=== PATIENT | female | born 1985 | race Caucasian/White ===

== ENCOUNTER 2017-05-07 03:57 | Observation (INO) | payer OTHER ==
[~2017-05-07] VITALS: Ht 165.1 cm; Wt 60.8 kg
[2017-05-07] VITALS (7 sets, daily range): BP systolic 86–105; BP diastolic 44–68; PULSE 101–111; TEMP 36.9–37.5; O2SAT 95; Ht 165.1 cm; Wt 60.8 kg
[2017-05-07] MEDS ORDERED: SODIUM CHLORIDE 0.9% 1000ML 1,000 ML IV STA ×3 (04:14→07:08)
--- NOTE | 2017-05-07 04:15 | EMERGENCY ROOM VISIT NOTE ---
History Report prepared by Judy: Enrique Grijalva Under the Supervision of: Dr. Jeffery Dubois M.D. First contact with patient: 04:05 Chief Complaint: COUGH Stated Complaint: COUGH W/ PHLEM,FEVER,HEART POUNDING,[place], 9W History of Present Illness The patient is a 31 year old female who presents to the Emergency Room with complaints of a persistent productive cough that began 1 week ago. She is currently 9 weeks . She describes her sputum production as green in color. When her symptoms began, she was afebrile. However, yesterday she began to have a fever with chills. She notes her appetite has been normal and denies any nausea, vomiting, diarrhea, or abnormal urinary symptoms. She has intermittent rhinorrhea with a sore throat and chest pain as well. She felt her heart racing prior to arrival. She took Tylenol 1 hour ago. She denies any leg swelling or leg pain. She denies any history of blood clots. She denies any abnormal vaginal bleeding. She also denies any recent antibiotic use. Source of History: patient Onset: 1 week ago Position: other (Respiratory System) Symptom Intensity: Productive Quality: other (Cough) Timing: other (Persistent) Associated Symptoms: + fevers, + chills, + chest pain, No nausea, No vomiting, No diarrhea, No urinary symptoms Note: She felt her heart racing prior to arrival. Review of Systems See HPI for pertinent positives & negatives. A total of 10 systems reviewed and were otherwise negative. Family History Patient reports no known family medical history. Social History Smoking Status: Never Smoker Smokeless Tobacco Use: No Drug Use: none Current/Historical Medications Scheduled Azithromycin (Zithromax Z-Humberto), 1 PKT PO UD Multivit/Min/Iron/Fol Ac/Pren ( Vitamin), 1 TAB PO DAILY Prednisone (Prednisone), 1 TAB PO DAILY Allergies Uncoded Allergies: PENICILLIN (Allergy, Intermediate, " HEAD -TO-TOE" RASH, 05/07/17) Physical Exam Vital Signs Date Time Temp Pulse Resp B/P (MAP) Pulse Ox O2 Delivery O2 Flow Rate FiO2 05/07/17 07:08 117 16 99/77 96 Room Air 05/07/17 06:06 36.8 108 18 100/59 98 Room Air 05/07/17 04:50 109 18 95/54 95 Room Air 05/07/17 04:29 98 Room Air 05/07/17 04:01 37.2 132 18 92/58 94 Room Air Physical Exam GENERAL: Patient is uncomfortable appearing and in no acute distress. HEENT: No acute trauma, normocephalic atraumatic, mucous membranes moist, no nasal congestion, no scleral icterus. NECK: No stridor, no adenopathy, no meningismus, trachea is midline. LUNGS: No dyspnea. Crackles noted to the right lower lung. No wheeze, no rhonchi. HEART: Tachycardic rate and regular rhythm. No murmurs, rubs, gallops appreciated. ABDOMEN: Soft, nontender, bowel sounds positive, no masses appreciated, no peritonitis. BACK: No midline tenderness, no CVA tenderness EXTREMITIES: Normal motion all extremities, no cyanosis, no edema. NEUROLOGIC: Alert and oriented, no acute motor or sensory deficits, no focal weakness, cranial nerves grossly intact. SKIN: No rash, no jaundice, no diaphoresis. Medical Decision & Procedures ER Provider Diagnostic Interpretation: Radiology results and stated below per my review: 1 VIEW CHEST X-RAY: No infiltrate, no effusion, normal cardiac border. Per me. Laboratory Results 05/07/17 04:35 Red Blood Count 3.62, Mean Corpuscular Volume 90.6, Mean Corpuscular Hemoglobin 31.5, Mean Corpuscular Hemoglobin Concent 34.8, Mean Platelet Volume 11.1, Neutrophils (%) (Auto) 88.7, Lymphocytes (%) (Auto) 5.3, Monocytes (%) (Auto) 5.8, Eosinophils (%) (Auto) 0.0, Basophils (%) (Auto) 0.1, Neutrophils # (Auto) 7.19, Lymphocytes # (Auto) 0.43, Monocytes # (Auto) 0.47, Eosinophils # (Auto) 0.00, Basophils # (Auto) 0.01 05/07/17 04:35 Test 05/07/17 04:35 05/07/17 04:40 05/07/17 04:56 05/07/17 05:55 White Blood Count 8.11 K/uL (4.8-10.8) Red Blood Count 3.62 M/uL (4.2-5.4) Hemoglobin 11.4 g/dL (12.0-16.0) Hematocrit 32.8 % (37-47) Mean Corpuscular Volume 90.6 fL (80-100) Mean Corpuscular Hemoglobin 31.5 pg (25-34) Mean Corpuscular Hemoglobin Concent 34.8 g/dl (32-36) Platelet Count 177 K/uL (130-400) Mean Platelet Volume 11.1 fL (7.4-10.4) Neutrophils (%) (Auto) 88.7 % Lymphocytes (%) (Auto) 5.3 % Monocytes (%) (Auto) 5.8 % Eosinophils (%) (Auto) 0.0 % Basophils (%) (Auto) 0.1 % Neutrophils # (Auto) 7.19 K/uL (1.4-6.5) Lymphocytes # (Auto) 0.43 K/uL (1.2-3.4) Monocytes # (Auto) 0.47 K/uL (0.11-0.59) Eosinophils # (Auto) 0.00 K/uL (0-0.5) Basophils # (Auto) 0.01 K/uL (0-0.2) RDW Standard Deviation 41.7 fL (36.4-46.3) RDW Coefficient of Variation 12.6 % (11.5-14.5) Immature Granulocyte % (Auto) 0.1 % Immature Granulocyte # (Auto) 0.01 K/uL (0.00-0.02) Anion Gap 8.0 mmol/L (3-11) Est Creatinine Clear Calc Drug Dose 153.2 ml/min Estimated GFR () > 150.0 Estimated GFR (Non- 129.8 BUN/Creatinine Ratio 14.3 (10-20) Calcium Level 8.8 mg/dl (8.5-10.1) Troponin I < 0.015 ng/ml (0-0.045) Bedside Lactic Acid Venous 1.00 mmol/L (0.90-1.70) Influenza Type A Antigen Neg for Influ A (NEG) Influenza Type B Antigen Neg for Influ B (NEG) Urine Color YELLOW Urine Appearance CLEAR (CLEAR) Urine pH 7.0 (4.5-7.5) Urine Specific [place] 1.004 (1.000-1.030) Urine Protein NEG (NEG) Urine Glucose (UA) NEG (NEG) Urine Ketones 1+ (NEG) Urine Occult Blood NEG (NEG) Urine Nitrite NEG (NEG) Urine Bilirubin NEG (NEG) Urine Urobilinogen NEG (NEG) Urine Leukocyte Esterase NEG (NEG) Urine WBC (Auto) 1-5 /hpf (0-5) Urine RBC (Auto) 0-4 /hpf (0-4) Urine Hyaline Casts (Auto) 1-5 /lpf (0-5) Urine Epithelial Cells (Auto) 10-20 /lpf (0-5) Urine Bacteria (Auto) 1+ (NEG) Laboratory results as reviewed by me. Medications Administered Medications (Trade) Dose Ordered Sig/Caprice Route Start Time Stop Time Status Last Admin Dose Admin Sodium Chloride 1,000 ml @ 999 mls/hr Q1H1M STAT IV 05/07/17 04:14 05/07/17 05:14 DC 05/07/17 04:50 999 MLS/HR Sodium Chloride 1,000 ml @ 999 mls/hr Q1H1M STAT IV 05/07/17 05:16 05/07/17 06:16 DC 05/07/17 05:16 999 MLS/HR ECG Indication: chest pain Rate (beats per minute): 118 Rhythm: sinus tachycardia Findings: no acute ischemic change, no ectopy, other (QTC is 442) ED Course 0405: The patient was evaluated in room A10. A complete history and physical exam was performed. 0516: The patient is feeling a lot better and her heart rate is down to the 110' s. 0615: Reevaluated the patient. Discussed results and discharge instructions: She verbalized understanding and agreement. The patient is ready for discharge. Medical Decision Differential: Viral, Pharyngitis, Cellulitis, Pneumonia, Influenza, Meningitis, Sepsis, Bacteremia, UTI/Pyelonephritis, Endocrine, Toxicologic, amongst other pathologies entertained. 31 yr old female arrives with complaint of fevers, chills, cough, fatigue, chest tightness, headache, and in general viral like symptoms, however she is tachycardic, mildly hypotensive, and is clearly quite dehydrated appearing. Exam with tachy and RLL crackles. Lactic acid OK. WBC is 8, which is actually very high for her (notes she usually runs <2 with myeloma and T cell disorder). Admits history of admissions for sepsis, previously due to pneumonia and states WBC > 6 is highly concerning. She was feeling much better after 2 L NSS and HR had started improving, however after a few hours HR started going back up and symptoms started returning. She is not in shock but is clearly still dehydrated (Ketones in urine). With history she will be empirically treated with rocephin/vanco. I did brief bedside US revealing IUP but will need formal to confirm this. Flu is negative and no flu contacts thus will hold off on Tamiflu for now. Headache has improved, there is no neck pain/stiffness, no rash and she is not meningitic appearing thus I feel that LP not indicated. UA is clear without evidence infection. CXR unremarkable, though with significant dehydration there may not be evidence thus of pna. I did initially concider sending home with abx but with repeat evaluations I felt that she will need further work-up and monitoring due to persistent tachy and symptoms. I do not however feel this is PE as she does not currently have SHOB nor hypoxia and she has higher likelihood causes of her symptoms, ie infection. No evidence pericarditis/acs. Patient signed out to Dr Villa awaiting further work-up. Medication Reconcilliation Current Medication List: was personally reviewed by me Blood Pressure Screening Patient's blood pressure: Low blood pressure Impression Primary Impression: Upper respiratory infection Additional Impressions: Persistent cough Dehydration Scribe Attestation The scribe's documentation has been prepared under my direction and personally reviewed by me in its entirety. I confirm that the note above accurately reflects all work, treatment, procedures, and medical decision making performed by me. Departure Information Dispostion Home / Self-Care Prescriptions Prednisone (Prednisone) 20 Mg Tab 1 TAB PO DAILY for 4 Days, #4 TAB Prov: Jeffery Dubois M.D. 05/07/17 Azithromycin (ZITHROMAX Z-HUMBERTO) 250 Mg Tab 1 PKT PO UD, #1 PKT Prov: Jeffery Dubois M.D. 05/07/17 Referrals No Doctor, Assigned (PCP) Forms HOME CARE DOCUMENTATION FORM, IMPORTANT VISIT INFORMATION Patient Instructions My [facility] Additional Instructions Keep well hydrated. Return if worsening symptoms, in particular shortness of breath, chest pain, passing out or other emergent concerns. Use Tylenol as needed for symptoms. Follow up with your primary OB as planned for full OB evaluation. Problem Qualifiers
[2017-05-07 04:56] LABS: HEMATOCRIT 32.8 % (37-47); HEMOGLOBIN 11.4 g/dL (12.0-16.0); MEAN CELL VOLUME 90.6 fL (80-100); MEAN CORPUSCULAR HEMOGLOBIN 31.5 pg (25-34); MEAN CORPUSCULAR HGB CONC 34.8 g/dl (32-36); MEAN PLATELET VOLUME 11.1 fL (7.4-10.4); PLATELET COUNT 177 K/uL (130-400); RED CELL DISTRIBUTION WIDTH CV 12.6 % (11.5-14.5); RED CELL DISTRIBUTION WIDTH SD 41.7 fL (36.4-46.3); WHITE BLOOD COUNT 8.11 K/uL (4.8-10.8)
[2017-05-07 05:13] LABS: BLOOD UREA NITROGEN 7 mg/dl (7-18); CALCIUM 8.8 mg/dl (8.5-10.1); CARBON DIOXIDE 22 mmol/L (21-32); CREATININE 0.47 mg/dl (0.60-1.20); GLUCOSE 93 mg/dl (70-99); POTASSIUM 3.2 mmol/L (3.5-5.1); SODIUM 134 mmol/L (136-145)
[2017-05-07 05:16] LABS: BASO % 0.1 %; BASO ABS # 0.01 K/uL (0-0.2); IG# 0.01 K/uL (0.00-0.02); LYMPH % 5.3 %; LYMPH ABS # 0.43 K/uL (1.2-3.4); MONO % 5.8 %; MONO ABS # 0.47 K/uL (0.11-0.59); NEUT % 88.7 %; NEUT ABS # 7.19 K/uL (1.4-6.5)
[2017-05-07] MEDS ORDERED: PRENTAB26 PO (05:22)
[2017-05-07 05:50] LABS: INFLUENZA B ANTIGEN Neg for Influ B (NEG)
[2017-05-07] MEDS ORDERED: AZITHROMYCIN 250 MG TAB PO ONE (06:45)
[2017-05-07] MEDS ORDERED: PRED20TA PO (06:53)
[2017-05-07] MEDS ORDERED: AZITTAB PO (06:53)
[2017-05-07] MEDS ORDERED: CEFTRIAXONE SOD INJ 1 GM ADDVIAL ONE (07:05)
[2017-05-07] MEDS ORDERED: CEFTRIAXONE SOD INJ 1 GM ADDVIAL IV STA (07:05)
[2017-05-07] MEDS ORDERED: VANCOMYCIN 1GM ED/ASU OMNICELL IV STA (07:15)
--- NOTE | 2017-05-07 07:42 | DIAGNOSTIC IMAGING REPORT ---
CHEST ONE VIEW PORTABLE CLINICAL HISTORY: fever COUGH. HEADACHE. COMPARISON STUDY: No previous studies for comparison. FINDINGS: The heart is normal in size. There are airspace opacities the left medial lung base, suspicious for a pneumonia given history of fever and cough.[ There is no failure. There are no pleural effusions. IMPRESSION: Airspace opacities at the left medial lung base suspicious for pneumonia. Films subsequent to treatment are recommended in follow-up. Electronically signed by: Pranay Jauregui M.D. 05/07/2017 7:41 AM Dictated Date/Time: 05/07/2017 7:40 AM
--- NOTE | 2017-05-07 08:12 | DIAGNOSTIC IMAGING REPORT ---
<14 WKS SINGLE CLINICAL HISTORY: , sepsis. COMPARISON STUDY: No previous studies for comparison. FINDINGS: A single live intrauterine gestation is visualized. The heart rate is 184. The crown-rump length measures 23 mm corresponding to an estimated postmenstrual age of 9 weeks and 0 days. A normal-appearing yolk sac is visualized. IMPRESSION: 1. Single live intrauterine . The estimated postmenstrual age is 9 weeks and 0 days 2. tachycardia. Electronically signed by: Pranay Jauregui M.D. 05/07/2017 8:10 AM Dictated Date/Time: 05/07/2017 8:07 AM
[2017-05-07] MEDS ORDERED: ACETAMINOPHEN 500 MG TAB PO STA (08:23)
--- NOTE | 2017-05-07 08:32 | EMERGENCY ROOM VISIT NOTE ---
ED Visit Note First contact with patient: 07:07 I assumed care at the change of shift. An ultrasound of the uterus for was pending. The ultrasound returned showing a viable 9 week . The patient presents tachycardic with cough and congestion. She has a history of myeloma and typically runs a white blood cell count of around 2. Her white count today is elevated from her baseline. She is persistently tachycardic despite IV fluids. She is borderline hypotensive. On chest film, she appears to have pneumonia at the left lower lung. Given her findings and history, a hospital stay was felt warranted. The patient had received ceftriaxone and vancomycin as antibiotic coverage. I did order for a gram of oral Tylenol for fever and aches. The patient is currently resting comfortably. Diagnosis: Tachycardia. Pneumonia. .
[2017-05-07 08:38] LABS: INFLUENZA A PCR Neg for Influ A (NEG); INFLUENZA B PCR Neg for Influ B (NEG)
[2017-05-07] MEDS ORDERED: POLYETHYLENE (MIRALAX) 17 GM PACK PO PRN (09:00)
[2017-05-07] MEDS ORDERED: MAGNESIUM HYDROXIDE SUSP 30 ML UDC PO PRN (09:00)
[2017-05-07] MEDS ORDERED: ONDANSETRON INJ 2 MG/ML 2 ML VIAL IV PRN (09:00)
[2017-05-07] MEDS ORDERED: ALUMINUM/MAGNESIUM/SIMETH (MAALOX MAX) 30 ML UDC PO PRN (09:00)
[2017-05-07] MEDS ORDERED: PRENATAL VITAMIN TAB PO SCH (09:00)
[2017-05-07] MEDS ORDERED: POTASSIUM CHLORIDE 20 MEQ TABCR PO ONE (09:00)
[2017-05-07] MEDS ORDERED: POTASSIUM CHLORIDE 10 MEQ TABCR ONE (09:30)
--- NOTE | 2017-05-07 09:34 | History and Physical ---
History & Physical Date & Time of Service: May 07, 2017 at 09:07 Chief Complaint: Cough W/ Phlem,Fever,Heart Pounding,[place], 9W Primary Care Physician: No Doctor, Assigned History of Present Illness Source: patient, family ( at bedside ), clinic records, hospital records Patient is a pleasant 31 y/o female, with PMHx of smouldering multiple myeloma and 9 weeks , who presented to the ED with complaints of fever/chills x1 day and cold-like symptoms x1 week. Patient notes she has been experiencing head congestion and a productive cough (green/brown sputum production) for 1 week now. She thought it was just the common cold. She did not see a medical provider, nor took any medications. Her and her are visiting from [facility] for the holidays. Last evening she started to experience fever/chills and palpitations. Her highest temp reading was 101.9. With her h/o MM and , she decided to come to the ED. Patient is currently not receiving treatment for multiple myeloma. She follows w/ Dr. Valente and Dr. Mckee in [facility]. This is her second - 1st resulted in miscarriage. +sweats. + headache. Patient denies any lightheadedness, dizziness, vision changes, CP, edema, SOB, wheezing, cough, abdominal pain, nausea, vomiting, diarrhea, urinary symptoms, melena, numbness/tingling, weakness, muscle/joint pain, anxiety/depression, active bleeding, or new skin discoloration/changes. Past Medical/Surgical History Past Medical/Surgical History: Smouldering multiple myeloma - 9 weeks Neck mass biopsy- lymph node Family History Patient reports no known family medical history. Social History Smoking Status: Never Smoker Smokeless Tobacco Use: No Alcohol Use: none Drug Use: none Marital Status: Housing status: lives with family Allergies Coded Allergies: Penicillins (Verified Allergy, Intermediate, " HEAD -TO-TOE" RASH, ) Home Medications Scheduled Azithromycin (Zithromax Z-Humberto), 1 PKT PO UD Multivit/Min/Iron/Fol Ac/Pren ( Vitamin), 1 TAB PO DAILY Prednisone (Prednisone), 1 TAB PO DAILY Physical Exam Vital Signs Date Time Temp Pulse Resp B/P (MAP) Pulse Ox O2 Delivery O2 Flow Rate FiO2 05/07/17 08:25 37.4 118 17 111/52 97 Room Air 05/07/17 07:44 115 24 111/55 97 Room Air 05/07/17 07:08 117 16 99/77 96 Room Air 05/07/17 06:06 36.8 108 18 100/59 98 Room Air 05/07/17 04:50 109 18 95/54 95 Room Air 05/07/17 04:29 98 Room Air 05/07/17 04:01 37.2 132 18 92/58 94 Room Air General Appearance: no apparent distress Head: normocephalic, atraumatic Eyes: normal inspection, PERRL ENT: hearing grossly normal Neck: supple Respiratory/Chest: lungs clear, no respiratory distress, no accessory muscle use Cardiovascular: + tachycardia (rhythm regular ) Abdomen/GI: normal bowel sounds, non tender, soft Back: normal inspection Extremities/Musculoskelatal: no calf tenderness, no pedal edema Neurologic/Psych: alert, normal mood/affect, oriented x 3 Skin: normal color, warm/dry, no rash Diagnostics Laboratory Results Results Past 24 Hours Test 05/07/17 04:35 05/07/17 04:40 05/07/17 04:56 05/07/17 05:55 Range/Units White Blood Count 8.11 4.8-10.8 K/uL Red Blood Count 3.62 4.2-5.4 M/uL Hemoglobin 11.4 12.0-16.0 g/dL Hematocrit 32.8 37-47 % Mean Corpuscular Volume 90.6 80-100 fL Mean Corpuscular Hemoglobin 31.5 25-34 pg Mean Corpuscular Hemoglobin Concent 34.8 32-36 g/dl Platelet Count 177 130-400 K/uL Mean Platelet Volume 11.1 7.4-10.4 fL Neutrophils (%) (Auto) 88.7 % Lymphocytes (%) (Auto) 5.3 % Monocytes (%) (Auto) 5.8 % Eosinophils (%) (Auto) 0.0 % Basophils (%) (Auto) 0.1 % Neutrophils # (Auto) 7.19 1.4-6.5 K/uL Lymphocytes # (Auto) 0.43 1.2-3.4 K/uL Monocytes # (Auto) 0.47 0.11-0.59 K/uL Eosinophils # (Auto) 0.00 0-0.5 K/uL Basophils # (Auto) 0.01 0-0.2 K/uL RDW Standard Deviation 41.7 36.4-46.3 fL RDW Coefficient of Variation 12.6 11.5-14.5 % Immature Granulocyte % (Auto) 0.1 % Immature Granulocyte # (Auto) 0.01 0.00-0.02 K/uL Sodium Level 134 136-145 mmol/L Potassium Level 3.2 3.5-5.1 mmol/L Chloride Level 104 98-107 mmol/L Carbon Dioxide Level 22 21-32 mmol/L Anion Gap 8.0 3-11 mmol/L Blood Urea Nitrogen 7 7-18 mg/dl Creatinine 0.47 0.60-1.20 mg/dl Est Creatinine Clear Calc Drug Dose 153.2 ml/min Estimated GFR () > 150.0 Estimated GFR (Non- 129.8 BUN/Creatinine Ratio 14.3 10-20 Random Glucose 93 70-99 mg/dl Calcium Level 8.8 8.5-10.1 mg/dl Troponin I < 0.015 0-0.045 ng/ml Bedside Lactic Acid Venous 1.00 0.90-1.70 mmol/L Influenza Type A (RT-PCR) Neg for Influ A NEG Influenza Type A Antigen Neg for Influ A NEG Influenza Type B Antigen Neg for Influ B NEG Influenza Type B (RT-PCR) Neg for Influ B NEG Urine Color YELLOW Urine Appearance CLEAR CLEAR Urine pH 7.0 4.5-7.5 Urine Specific [place] 1.004 1.000-1.030 Urine Protein NEG NEG Urine Glucose (UA) NEG NEG Urine Ketones 1+ NEG Urine Occult Blood NEG NEG Urine Nitrite NEG NEG Urine Bilirubin NEG NEG Urine Urobilinogen NEG NEG Urine Leukocyte Esterase NEG NEG Urine WBC (Auto) 1-5 0-5 /hpf Urine RBC (Auto) 0-4 0-4 /hpf Urine Hyaline Casts (Auto) 1-5 0-5 /lpf Urine Epithelial Cells (Auto) 10-20 0-5 /lpf Urine Bacteria (Auto) 1+ NEG Microbiology Results 05/07/17 Blood Culture, Received Pending 05/07/17 Blood Culture, Received Pending 05/07/17 Urine Culture, Received Pending Diagnostic Radiology CHEST ONE VIEW PORTABLE CLINICAL HISTORY: fever COUGH. HEADACHE. COMPARISON STUDY: No previous studies for comparison. FINDINGS: The heart is normal in size. There are airspace opacities the left medial lung base, suspicious for a pneumonia given history of fever and cough.[ There is no failure. There are no pleural effusions. IMPRESSION: Airspace opacities at the left medial lung base suspicious for pneumonia. Films subsequent to treatment are recommended in follow-up. Electronically signed by: Pranay Jauregui M.D. 05/07/2017 7:41 AM Dictated Date/Time: 05/07/2017 7:40 AM The status of this report is Signed. Draft = Not yet reviewed or approved by Radiologist. Signed = Reviewed and approved by Radiologist. [~ rep ct add3]] <14 WKS SINGLE CLINICAL HISTORY: , sepsis. COMPARISON STUDY: No previous studies for comparison. FINDINGS: A single live intrauterine gestation is visualized. The heart rate is 184. The crown-rump length measures 23 mm corresponding to an estimated postmenstrual age of 9 weeks and 0 days. A normal-appearing yolk sac is visualized. IMPRESSION: 1. Single live intrauterine . The estimated postmenstrual age is 9 weeks and 0 days 2. tachycardia. Electronically signed by: Pranay Jauregui M.D. 05/07/2017 8:10 AM Dictated Date/Time: 05/07/2017 8:07 AM The status of this report is Signed. Draft = Not yet reviewed or approved by Radiologist. Signed = Reviewed and approved by Radiologist. EKG JANEL LAMBERT ID:[id number] 07-MAY-2017 04:19:48 [facility] Sinus tachycardia Low voltage QRS Nonspecific T wave abnormality Abnormal ECG No previous ECGs available 25mm/s 10mm/mV 150Hz 8.0 SP2 12SL 241 CHARLA: 3 Referred by: Referred Self Unconfirmed Vent. rate 118 BPM AR interval 150 ms QRS duration 68 ms QT/QTc 316/442 ms P-R-T axes 53 11 52 1985 (31 yr) Female Room:A10 Loc:15 Senior Graphic Designer: [id number] Test ind: Impression Assessment and Plan Patient is a pleasant 31 y/o female, with PMHx of smouldering multiple myeloma and 9 weeks , who presented to the ED with complaints of fever/chills x1 day and cold-like symptoms x1 week. Community-acquired L medial lung base PNA: - Admit to tele for cardiac monitoring - Cardiac enzymes- negative - EKG w/out ischemic changes - Repeat lactic acid q6 hrs - BCx, UCx, MRSA swab, and sputum culture pending - Procalcitonin pending - IV Rocephin + Azithromycin- received 1 dose IV Vancomycin in ED, will not continue at this time- if MRSA swab +, will restart -- Discussed risk/benefits of antibiotics during with patient- in agreement to continue with treatment plan - Received 40 mg Prednisone in ED- will not continue at this time - Repeat CXR in AM - IVF @ 125 ml/hr due to hypotension - Follow PRP and CBC Hypokalemia at 3.2: 40 mEq KCL supplement x1 now, follow PRP and replace PRN Hyponatremia, likely secondary to dehydration: IVF as above, follow PRP 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 Valente and Dr. Mckee in [facility] : - US- live intrauterine - Consult OB, appreciate recommendations DVT prophylaxis: TEDs/SCDs, ambulation Code Status: LEVEL I, FULL Dispo: Lives in [facility] w/ - no discharge needs anticipated Patient is seen and examined by me at bedside.Agree with YASSINE Kaufman plan. Plan: - SARS vs possible early PNA - We will continue with Rocephin and azithromycin - Bc/Uc Cxr in am, cbc, employee communications specialist consult - Risk andbenefit discussed both antibiotics are Cat b Drugs. Dr Gaitan Level of Care Telemetry Resuscitation Status FULL RESUSCITATION VTE Prophylaxis VTE Risk Assessment Done? Y/N: Yes Risk Level: Low Given or contraindicated: SCD's
[2017-05-07] MEDS ORDERED: IV FLUIDS COMPLETED PRN (09:45)
--- NOTE | 2017-05-07 09:50 | NUR ---
A: Patient admitted to room N281-2. Observation. Lungs diminished on room air. C/O of pain with coughing, denies wanting any medication due to being 9 weeks at this time. No edema noted, palpable pedal pulses. Sinus Tach on the monitor. See EMR for full admission assessment. Will continue to monitor.
[2017-05-07] MEDS: SODIUM CHLORIDE 0.9% 1000ML 1,000 ML IV SCH ×2 (10:46→19:27)
[2017-05-07] MEDS: AZITHROMYCIN IV 500 MG in DEXTROSE 5% 250ML 250 ML IV SCH (10:48)
--- NOTE | 2017-05-07 12:00 | NUR ---
A: Patient assessed, assessment unchanged. See EMR.
--- NOTE | 2017-05-07 16:00 | NUR ---
Observation note: Resting quietly in bed. Monitor shows sinus tachycardia. IV fluids of NSS infusing. SHINGLE PACKER in to see patient. Has a dry cough.
[2017-05-07] MEDS: ACETAMINOPHEN 325 MG TAB PO PRN (16:27)
--- NOTE | 2017-05-07 17:00 | GYNECOLOGICAL CONSULTATION ---
DATE OF CONSULTATION: 05/07/2017 CHIEF COMPLAINT: Nine weeks with pneumonia. HISTORY OF PRESENT ILLNESS: A 31-year-old 2, para 0-0-1-0 with LMP 03/06/2017 and EDC 12/09/2017, at approximately 9 weeks' gestation, who presented to the Emergency Room with symptoms of cough that was productive, fever and chills, nasal drainage, sore throat, and chest pain. She was evaluated in the Emergency Room and then admitted to the hospital with a diagnosis of community-acquired pneumonia with a background history of smoldering multiple myeloma. The patient denies any vaginal bleeding or leaking fluid. 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 She was visiting the area because her has family in the area. She was due to go back soon and has appointments with her multiple myeloma doctors on Monday. She complains of chills currently. She did have an ultrasound showing viability this morning. The results noted tachycardia.. OB HISTORY: Termination x1. GYNECOLOGIC HISTORY: Regular H[facility] STE[facility]ER care in [place]. PAST MEDICAL HISTORY: Multiple myeloma and T-cell population decrease, resultant diagnosis of smoldering multiple myeloma PAST SURGICAL HISTORY: Neck lymph node removed, which was benign. ALLERGIES: PENICILLINS. MEDICATIONS: vitamins. FAMILY HISTORY: No congenital anomalies or mental retardation. SOCIAL HISTORY: No tobacco, alcohol, or street drug use. REVIEW OF SYSTEMS: No obstetrical complaints. No pain. Known IUP. No shortness of breath currently. Not requiring any oxygenation. Noting cough. PHYSICAL EXAMINATION: VITAL SIGNS: Temperature 36.9, pulse 110, respirations 20, blood pressure 98/49, and pulse ox 95% on room air. GENERAL: Pleasant-appearing female, resting in her bed. No acute distress. NEUROLOGIC: Grossly intact. Remainder of exam is deferred. IMAGING STUDIES: ultrasound report reviewed, with 9-week 0 day crown rump length and a heart rate of 184. ASSESSMENT: 1. Nine weeks 0 day intrauterine . 2. Pneumonia with a background history complicated by smoldering multiple myeloma. PLAN: I discussed with the patient that given her early , at this stage management of her pneumonia includes maintaining oxygen saturations of approximately 95% or greater, administering appropriate antibiotics, keeping temperature down with Tylenol. The patient is hoping that her hospital stay is short. At this point, we have confirmed viability with the ultrasound that was done earlier today. I see no reason to repeat that in the near future unless the patient has a longer hospital stay for which reassurance in visualizing the heart rate is necessary. This could be done at 1 week intervals. The patient should report any bleeding or pelvic pain. She can follow up with her doctors in [place] for her obstetric care. I did review the ultrasound and do not see significance to the heart rate, except for fact that when maternal pulse is elevated, as in fever, that she should aim to keep her fevers down with tylenol. I did review her medication list and her IV antibiotics are appropriate for . We discussed immunocompromised state in added to her immunocompromised state due to her medical problems. She mentions having had 2 consults with 2 different recommendations regarding pursuing . Given that she had no infections in the past year, she opted to conceive. Once again, she will follow with her [place] doctors upon discharge here. Thank you for allowing us to participate in the care of this very nice patient. Please let us know if you need us to reevaluate her. 20min spent at bedside with pt and in review of her available record, >50% in counseling. MARK
[2017-05-07] MEDS ORDERED: SODIUM CHLORIDE 0.9% 500ML 500 ML IV ONE (19:30)
--- NOTE | 2017-05-07 20:00 | NUR ---
Observation note: Resting quietly in bed. BP at 1915 86/[address] Mcneal made aware and NSS 500cc bolus IV ordered and given. BP came up to 97/59 after bolus. Monitor shows sinus tachycardia with a rate high 90's low 100's. IV fluids continue. Afebrile.
[2017-05-07] MEDS ORDERED: COUGH DROP (SUGAR FREE) LOZ 24 LOZ/1 BOX PO PRN (23:00)
[2017-05-08] VITALS: O2SAT 95
--- NOTE | 2017-05-08 | NUR ---
OBS: Pt alert and oriented. Assessment completed. at bedside. Pt complains of soreness noted in chest and throat. PRN lozenges given. Sinus tach noted on the monitor, no acute tele events noted. NS at 125ml/hr infusing as ordered. Repeat CXR today per MD order then possible D/C. Pt encouraged to ring for assistance as needed. Call hall left within reach of pt.
[2017-05-08] MEDS: SODIUM CHLORIDE 0.9% 1000ML 1,000 ML IV SCH (03:47)
[2017-05-08 04:00] VITALS: O2SAT 95
--- NOTE | 2017-05-08 04:00 | NUR ---
OBS: Pt remains alert and oriented x4. Ind in room. remains at bedside. Assessment unchanged. IVF continue to infuse. Rings appropriately for assistance. D/C planning in progress.
[2017-05-08 04:07] VITALS: BP 101/62; PULSE 102; TEMP 37.1; O2SAT 95
[2017-05-08] MEDS ORDERED: CEFTRIAXONE SOD INJ 1 GM in DEXTROSE 5% ADD-VANTAGE 50ML 50 ML IV SCH (06:00)
[2017-05-08] MEDS: ACETAMINOPHEN 325 MG TAB PO PRN (06:06)
[2017-05-08 06:40] LABS: HEMATOCRIT 29.6 % (37-47); HEMOGLOBIN 10.2 g/dL (12.0-16.0); MEAN CELL VOLUME 92.8 fL (80-100); MEAN CORPUSCULAR HGB CONC 34.5 g/dl (32-36); MEAN PLATELET VOLUME 11.1 fL (7.4-10.4); PLATELET COUNT 170 K/uL (130-400); RED CELL DISTRIBUTION WIDTH CV 13.3 % (11.5-14.5); RED CELL DISTRIBUTION WIDTH SD 45.2 fL (36.4-46.3); WHITE BLOOD COUNT 4.33 K/uL (4.8-10.8)
--- NOTE | 2017-05-08 07:07 | DIAGNOSTIC IMAGING REPORT ---
CHEST ONE VIEW PORTABLE CLINICAL HISTORY: 31 years-old Female presenting with PNA f/u . TECHNIQUE: Portable upright AP view of the chest was obtained. COMPARISON: 05/07/2017. FINDINGS: Cardiomediastinal silhouette normal. Hazy left basilar opacity increased from prior. No large pleural effusion or pneumothorax. Osseous structures normal. Upper abdomen normal. IMPRESSION: 1. Increasing left basilar opacity concerning for pneumonia. Electronically signed by: Fredi Ba M.D. 05/08/2017 7:05 AM Dictated Date/Time: 05/08/2017 7:04 AM
[2017-05-08 07:09] LABS: BLOOD UREA NITROGEN 3 mg/dl (7-18); CALCIUM 8.3 mg/dl (8.5-10.1); CARBON DIOXIDE 19 mmol/L (21-32); CREATININE 0.32 mg/dl (0.60-1.20); GLUCOSE 77 mg/dl (70-99); POTASSIUM 3.6 mmol/L (3.5-5.1); SODIUM 136 mmol/L (136-145)
[2017-05-08 07:14] VITALS: BP 103/65; PULSE 99; TEMP 36.8; O2SAT 95
--- NOTE | 2017-05-08 08:00 | NUR ---
A/OBS: Alert and oriented x4. VSS on room air. Independent for ambulation. Denies shortness of breath or chest pain at this time. Reports lower back/sacral pain, chronic, manageable pain level at this time. at bedside. Would like to go home today if possible. NSR noted on monitor. Call hall within reach. Continue to monitor.
[2017-05-08] MEDS: AZITHROMYCIN IV 500 MG in DEXTROSE 5% 250ML 250 ML IV SCH (08:11)
[2017-05-08] MEDS ORDERED: PRENATAL VITAMIN TAB PO SCH (09:00)
[2017-05-08] MEDS ORDERED: AZITTAB PO (10:31)
--- NOTE | 2017-05-08 10:34 | Discharge Instructions ---
Discharge Instructions Date of Service May 08, 2017. Admission Reason for Admission: Pneumonia,Sepsis Discharge Discharge Diagnosis / Problem: PNEUMONIA Discharge Goals Goal(s): Diagnostic testing, Therapeutic intervention Activity Recommendations Activity Limitations: resume your previous activity . Current Hospital Diet Patient's current hospital diet: Regular Diet Discharge Diet Recommended Diet: Regular Diet Pending Studies Studies pending at discharge: yes List of pending studies: SPUTUM CULTURES, URINE CULTURE Medical Emergencies . Who to Call and When: Medical Emergencies: If at any time you feel your situation is an emergency, please call 911 immediately. . Non-Emergent Contact Non-Emergency issues call your: Primary Care Provider Call Non-Emergent contact if: temperature is above 101, your pain is unusual for you . . "Provider Documentation" section prepared by Kvng Ford. . Applications Programmer Recommendations Applications Programmer Recommendations: PLEASE NOTIFY YOUR OB PROVIDER UPON YOUR RETURN TO [place] REGARDING YOUR ANTIBIOTIC VTE Core Measure Inpt VTE Proph given/why not?: SCD's
[2017-05-08 11:41] VITALS: BP 103/65; PULSE 99; TEMP 36.8; O2SAT 95
--- NOTE | 2017-05-08 12:47 | NUR ---
A: MD ordered discharge. Discharge teaching completed, all questions answered. IV site discontinued, catheter intact. Monitor removed and returned to PCU. All belongings returned to pt. at bedside to transport pt. home. Pt. wishes to walk to main entrance.
--- NOTE | 2017-05-08 15:22 | Discharge Summary ---
Discharge Summary Date of Service May 08, 2017. Discharge Summary Admission Date: May 07, 2017 at 09:06 Discharge Date: May 08, 2017 Discharge Disposition: Home Principal Diagnosis: left lower lobe pneumonia, intrauterine Procedures: Pelvic ultrasound was viable intrauterine Consultations: Dr. Aleman from [employer] Medication Reconciliation Changed Medications: Azithromycin (Zithromax Z-Uhmberto) 250 Mg Tab 1 PKT PO UD, #4 DOSE (Changed from: 1) PLEASE DO NOT HAVE LOADING DOSE, JUST TAKE THE 25OMG DAILY PT HAD iv IN THE HOSPITAL Continued Medications: Multivit/Min/Iron/Fol Ac/Pren ( Vitamin) Tab 1 TAB PO DAILY, TAB Discontinued Medications: Prednisone (Prednisone) 20 Mg Tab 1 TAB PO DAILY for 4 Days, #4 TAB Discharge Exam Review of Systems: Constitutional: No fever, No chills Respiratory: + cough, No sputum, No wheezing, No shortness of breath, No dyspnea on exertion, No dyspnea at rest Cardiovascular: No chest pain, No edema Abdomen: No pain, No nausea, No vomiting, No diarrhea Musculoskeletal: No joint pain, No muscle pain, No swelling Neurologic: No memory loss, No paralysis Physical Exam: General Appearance: WD/WN, + mild distress Eyes: normal inspection, sclerae normal Neck: supple, no JVD Respiratory/Chest: chest non-tender, lungs clear, normal breath sounds, no respiratory distress Cardiovascular: regular rate, rhythm, no murmur Hospital Course 31-year-old female visiting from [place] with a history of low-grade myeloma who presents with fevers and symptoms consistent with pneumonia with a minor confirmation on chest x-ray. The patient is currently . Patient was brought in and put on community acquired pneumonia antibiotics she'll be discharged on azithromycin which is category B. She has an appointment this week on 05/11 with her oncologist and I encouraged her to call her gamemaster to have an appointment soon after returning to [place]. The patient will stay with her 's family in the [facility] for the next 2 days before traveling to [facility] to see her oncologist. She'll maintain her other medications. I spoke to both her and her prior to discharge and no other questions Total Time Spent: Greater than 30 minutes This includes examination of the patient, discharge planning, medication reconciliation, and communication with other providers. Discharge Instructions Please refer to the electronic Patient Visit Report (Discharge Instructions) for additional information.
== END 2017-05-08 13:15 | disposition home or self-care (01) ==
LOC: C.EDB 03:58 → C.MED 09:06 → ENRESERV 09:18
PROVIDERS: ADMIT Internal Medicine Endocrinology, Diabetes & Metabolism; ATTEND Internal Medicine
DX: O98.811 Other maternal infectious and parasitic diseases complicating pregnancy, first trimester (principal); J18.9 Pneumonia, unspecified organism; Z3A.09 9 weeks gestation of pregnancy; O99.281 Endocrine, nutritional and metabolic diseases complicating pregnancy, first trimester; E86.0 Dehydration; Z85.79 Personal history of other malignant neoplasms of lymphoid, hematopoietic and related tissues